=== PATIENT | female | born 1935 | race Caucasian/White ===

== ENCOUNTER 2017-01-19 18:49 | Emergency (ER) | payer MEDICARE, BC ==
[2017-01-19] MEDS ORDERED: Bacitracin Zinc 1 Packet ONE (19:23)
--- NOTE | 2017-01-19 23:50 | RAD ---
LEFT SHOULDER THREE VIEWS 01/19/17 No fracture, dislocation, or AC joint widening was seen. The bones appear intact. The visible adjace nt lung was clear except for a small streak of scarring or atelectasis in the lingular region. IMPRESSION: No acute shoulder findings. POS: HOME
--- NOTE | 2017-01-19 23:51 | CT ---
CT OF THE BRAIN WITHOUT CONTRAST 01/19/17 The ventricles are normal in size for age and atrophy. Patchy hypolucency is seen throughout the lynne p white matter consistent with chronic microvascular ischemia. No intracranial bleeding or extra-axi al hematoma was seen. The calvarium appears intact and the sphenoid sinus is clear. The mastoid air cells are clear. IMPRESSION: No acute intracranial finding. POS: HOME
== END 2017-01-19 20:03 | disposition home or self-care (01) ==
LOC: BURERS 18:49
DX: S00.83XA Contusion of other part of head, initial encounter (principal); S41.102A Unspecified open wound of left upper arm, initial encounter; S09.90XA Unspecified injury of head, initial encounter; E11.9 Type 2 diabetes mellitus without complications; E78.5 Hyperlipidemia, unspecified; I10 Essential (primary) hypertension; I25.10 Atherosclerotic heart disease of native coronary artery without angina pectoris; W18.30XA Fall on same level, unspecified, initial encounter
CPT/HCPCS: 70450